=== PATIENT | female | born 1975 | race Caucasian/White ===

== ENCOUNTER 2017-03-12 17:57 | Emergency (ER) | payer OTHER ==
[2017-03-12 18:10] VITALS: BMI 28.1
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
[2017-03-12] MEDS ORDERED: FLEXERIL TAB 10 MG PO STA (19:36)
[2017-03-12] MEDS ORDERED: TYLENOL #3 TAB (W/CODEINE) PO STA (19:36)
[2017-03-12] MEDS ORDERED: TYLENOL #3 TAB (W/CODEINE) PO ONE (19:43)
[2017-03-12] MEDS ORDERED: FLEXERIL TAB 10 MG ONE (19:43)
[2017-03-12 19:47] VITALS: BP 135/87
== END 2017-03-12 19:51 | disposition home or self-care (01) ==
LOC: ER 18:13
DX: M54.2 Cervicalgia (principal); M79.1 Myalgia; V89.2XXA Person injured in unspecified motor-vehicle accident, traffic, initial encounter
CPT/HCPCS: 70450; 72125; 99283

== ENCOUNTER 2018-01-12 14:08 | Emergency (ER) | payer MEDICAID, OTHER ==
[2018-01-12 14:17] VITALS: BP 166/98; BMI 28.1
[2018-01-12] MEDS ORDERED: TORADOL 60 MG VIAL IM ONE (14:44)
--- NOTE | 2018-01-12 14:46 | DR.URIAD ---
HPI - Time Seen Time seen: 14:40 - PCP Primary Care Physician: JAMAICA STRATTON - HPI Comment HPI Comment: PAIN WORSE TODAY. NO FEVER. GUM SORE. DYSPHAGIA PRESENT. NON PRODUCTIVE COUGH. - Complaint Chief Complaint Doctors Comments: SORE THROAT GOING DOWN NECK TIMES 2 DAYS. Chief Complaint:: PT C/O LEFT SIDE OF HER THROAT HURTING AND PAIN,,,, PT C/O PAIN STARTED ON 10/13/17 AND PAIN IS WORSE TODAY AND PT IS HAVING PROBLEMS SWOLLOWING ,,BR Self Treatment fo Chief Complaint: PT C/O EATING AND TALKING , OR DRINKING MAKES PAIN WORSE, - Reviewed Nurses Notes Reviewed: Yes - Source History Provided: Patient - Mode of Arrival Mode of Arrival: Ambulatory - Timing Onset of Chief Complaint: 01/11/18 - Context Recent Treated Infections: None History of Respiratory: None - Quality Quality of Cough: Nonproductive Rhinorrhea: None Shortness of Breath: Moderate - Associated Signs and Symptoms Other Signs and Symptoms: Cough, Sore Throat PMH - PMH Past Medical History: Yes Past Medical History: Hypertension Past Medical History Comment: FIBRO Past Surgical History: Yes Surgical History: - Family History History of Family Medical Conditions: Yes Family Medical History: Cancer, Hypertension - Social History Does patient currently use any type of tobacco product: Yes Have you used tobacco products in the last 12 months: Yes Type of Tobacco Use: Cigarettes How many years tobacco product used: 25 Does any household member use tobacco: Yes Alcohol Use: None Do you use any recreational Drugs:: No Lives With: Family Lives Where: Home - infectious screening In the last 2 months have you had wt loss of >10#?: NO Have you had fever, night sweats or hemotysis?: No Have you traveled outside the country in the last 6 months?: No Isolation: Standard ROS - Review of Systems Constitutional: No Symptoms Reported. negative: Chills, Fever, Weakness, Fatigue Eyes: No Symptoms Reported. negative: Eye Pain, Discharge ENTM: Nose Congestion, Throat Pain. negative: Ear Pain, Nose Discharge Respiratoy: No Symptoms Reported. negative: Non-Productive Cough, Short of Breath, Wheezing, Hemoptysis Cardiovascular: No Symptoms Reported Gastrointestinal/Abdominal: No Symptoms Reported. negative: Abdominal Pain, Diarrhea, Nausea, Vomiting Genitourinary: No Symptoms Reported. negative: Dysuria, Frequency, Hematuria Neurological: Headache Musculoskeletal: Muscle Pain Integumentary: No Symptoms Reported Hematologic/Lymphatic: No Symptoms Reported Endocrine: No Symptoms Reported All Other Systems: Reviewed and Negative PE - Vital Signs Vitals: Temperature 98.2 F Pulse Rate 80 Respiratory Rate 18 Blood Pressure [Right Arm] 135/87 Blood Pressure 166/98 O2 Sat by Pulse Oximetry 100 - General Limitations: No Limitations General Appearance: Alert - Head Head Exam: Normal Inspection - Eyes Eye exam: Normal Appearance - ENT ENT Exam: Normal External Ear Exam External Ear Exam: Normal External Inspection TM/Canal Exam: Bilateral Normal Nose Exam: Normal Nose Exam Mouth Exam: Normal Inspection Throat Exam: Tonsillar Erythema. negative: Tonsillomegaly, Tonsillar Exudate - Neck Neck Exam: Trachea Midline - Chest Chest Inspection: Symmetric Chest Wall Rise - Respiratory Respiratory Exam: Normal Lung Sounds Bilat Respiratory Exam: Bilateral Clear to Auscultation - Cardiovascular Cardiovascular Exam: Regular Rate, Normal Rhythm, Normal Heart Sounds - Abdominal Exam Abdominal Exam: Normal Bowel Sounds, Soft. negative: Tenderness - Extremeties Extremities Exam: Normal Inspection - Back Back Exam: Normal Inspection - Neurologic Neurological Exam: Alert, Oriented X3 - Psychiatric Psychiatric Exam: Normal Affect, Normal Mood - Skin Skin Exam: Normal Color MDM - Differential Diagnosis Differential Diagnosis: Otitis media, Streptococcal pharyngitis, Viral pharyngitis, Pneumonia, Sinsusitis, URI Course - Treatment Treatment: SEE ORDERS. - Education/Counseling Education/Counseling: Patient, Education Educated On: Diagnosis, Needs for Follow Up - Diagnosis Discharge Problem: Sinusitis Qualifiers: Sinusitis location: unspecified location Chronicity: acute Recurrence: not specified as recurrent Qualified Code(s): J01.90 - Acute sinusitis, unspecified Acute pharyngitis Qualifiers: Pharyngitis/tonsillitis etiology: unspecified etiology Qualified Code(s): J02.9 - Acute pharyngitis, unspecified - Discharge Plan Disposition: HOME, SELF-CARE Condition: Stable Prescriptions: Azithromycin [ZITHROMAX Tab 250 mg *] 1 dose PO DAILY #6 tab Tramadol HCl 50 mg PO TID #15 tablet - Follow ups/Referrals Follow ups/Referrals: NFD,None [Primary Care Provider] - 3 days - Instructions Instructions: Sinusitis, Adult, [id number], Pharyngitis, [id number] Additional Instructions: RETURN TO ED IF WORSE.
[2018-01-12] MEDS ORDERED: TORADOL 60 MG VIAL ONE (15:53)
== END 2018-01-12 16:17 | disposition home or self-care (01) ==
LOC: ER 14:21
DX: J01.80 Other acute sinusitis (principal); J02.9 Acute pharyngitis, unspecified
CPT/HCPCS: 96372; 99282; J1885

== ENCOUNTER 2018-01-16 21:04 | Emergency (ER) | payer MEDICAID ==
[2018-01-16 21:09] VITALS: BP 163/80; BMI 29.7
[2018-01-16] MEDS ORDERED: NORFLEX INJ IM ONE (21:18)
[2018-01-16] MEDS ORDERED: NORFLEX INJ ONE (21:18)
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
== END 2018-01-16 21:42 | disposition home or self-care (01) ==
LOC: ER 21:12
DX: M54.5 Low back pain (principal); G89.29 Other chronic pain
CPT/HCPCS: 96372; 99282; J2360